=== PATIENT | female | born 2000 | race Two or more races ===

== ENCOUNTER 2024-11-06 20:03 | Emergency (ER) | payer OTHER ==
[~2024-11-06] VITALS: Ht 160 cm; Wt 43.1 kg
[2024-11-06] MEDS ORDERED: DEXTROSE 5 % AND 0.9 % NACL 1,000 ML IV STA (21:57)
[2024-11-06] MEDS ORDERED: KETOROLAC TROMETHAMINE 15 MG VIAL IV STA (21:58)
[2024-11-06 22:26] LABS: BASO % 0.3 % (0.1-1.2); EOS # 0.01 (0.04-0.54); EOS % 0.1 % (0.7-7.0); LYMPH # 1.15 (1.18-3.74); LYMPH % 10.2 % (19.3-53.1); MEAN PLATELET VOLUME 10.40 fl (9.4-12.4); MONO # 0.51 (0.24-0.82); MONO % 4.5 % (4.7-12.5); NEUT # 9.53 (1.56-6.13); NEUT % 84.6 % (34.0-71.1); RED CELL DISTRIBUTION WIDTH 17.7 % (11.6-14.4)
[2024-11-06 23:07] LABS: ALT/SGPT 16.0 U/L (12-78); AST/SGOT 20.0 U/L (15-37); BILIRUBIN TOTAL 0.57 mg/dL (0.3-1.2); BUN CREA RATIO 20.0 (7.0-25.0); CREATININE SERUM 0.49 mg/dL (0.55-1.02); GFR 156.5; GLOBULINA 3.7 G/DL (2.4-3.5); GLUCOSE FASTING 80.0 mg/dL (65-100); OSMOLALITY SERUM 279.0 MOSM/KG (275-295); TSH 2.49 uIU/mL (0.358-3.74)
== END 2024-11-07 00:39 | disposition home or self-care (01) ==
LOC: ER 20:03
DX: E16.1 Other hypoglycemia (principal); N94.6 Dysmenorrhea, unspecified